=== PATIENT | female | born 1950 | race Caucasian/White ===

== ENCOUNTER 2019-09-29 01:15 | Inpatient (IN) | payer OTHER ==
[~2019-09-29] VITALS: Ht 165.1 cm; Wt 90.7 kg
[2019-09-29 01:22] VITALS: Ht 165.1 cm; Wt 90.7 kg
--- NOTE | 2019-09-29 01:34 | NUR ---
PT BIB [facility] FROM [facility], PT ASSISTED TO [facility]. PT STATES 6/10 BURNING TYPE CHEST PAIN RADIATING TO LT SIDE OF CHEST WITH PALPATIONS. PT STATED 'I HAD ACID REFLUX AND IT FELT LIKE MY HEART WAS RACING', STARTING THIS AM. PT ALSO NOTED WITH INCREASED BELCHING. PT DENIES ANY V/D/C, RESP ILLNESS, FEVER OR URINARY PROBLEMS AT THIS TIME. PT ON HOLD FOR HARM TO SELF. SITTER AT BEDSIDE.
[2019-09-29 01:57] LABS: BASOPHIL % 0.7 % (0-2); PLATELET COUNT 241 x10^3mcL (130-400); RED CELL DISTRIBUTION WIDTH 13.9 % (11.5-14.5)
[2019-09-29] MEDS ORDERED: PAXIL10 MG (02:36)
[2019-09-29] MEDS ORDERED: LAMICTAL25 M2 (02:36)
[2019-09-29] MEDS ORDERED: LASIX40 MG (02:37)
[2019-09-29] MEDS ORDERED: LOPRESSOR50 M1 (02:37)
[2019-09-29] MEDS ORDERED: LOSARTAN POTASS50 M1 (02:37)
[2019-09-29] MEDS ORDERED: ADALAT CC30 MG (02:37)
[2019-09-29] MEDS ORDERED: COZAAR50 M1 PO (02:38)
--- NOTE | 2019-09-29 02:44 | NUR ---
PT RESTNG IN POSITION OF COMFORT WITH SITTER FROM [facility] AT BEDSIDE. PT DENIES ANY PAIN AT THIS TIME. PT RESPS ARE E/U. PT IS A/O X4. PT HAS CALL LIGHT WITHIN REACH, PT IS IN CLEAR VIEW OF NURSES STATION. NO ACD
[2019-09-29 02:47] LABS: ALBUMIN 3.4 g/dL (3.4-5.0); BILIRUBIN TOTAL 0.3 mg/dL (0.20-1.00); CALCIUM 8.8 mg/dL (8.5-10.1); CARBON DIOXIDE 29.9 mmol/L (21-32); CREATININE SERUM 1.2 mg/dL (0.6-1.0); TOTAL PROTEIN, SERUM 7.4 g/dL (6.4-8.2)
[2019-09-29 02:53] LABS: POTASSIUM SERUM 3.3 mmol/L (3.5-5.1)
--- NOTE | 2019-09-29 03:30 | NUR ---
GAVE PT REPORT TO RN UPSTAIRS ON TELE FLOOR. PT IS ADMITTED TO TELE FLOOR FOR CONTINUED CARE
--- NOTE | 2019-09-29 03:46 | NUR ---
PT ESCORTED BY MYSELF AND [facility]SCAR EMT UP TO TELE FLOOR. PT IS A/O X4. PT RESPS ARE E/U. PT TAKEN UPSTIARS VIA SADE HERNANDEZ. NO ACD NOTED
[2019-09-29 03:52] LABS: CHOLESTEROL/HDL RATIO 4.5; MAGNESIUM 1.9 mg/dL (1.8-2.4); PHOSPHOROUS 2.8 mg/dL (2.5-4.9)
[2019-09-29 03:55] LABS: T3 TOTAL 1.18 ng/mL
[2019-09-29 03:58] LABS: FREE T4 1.79 ng/dL (0.76-1.46); FREE THYROXINE INDEX 4.2 ug/dL (1.4-4.5); T4(THYROXINE) 11.9 ug/dL (4.7-13.3)
[2019-09-29 04:46] VITALS: BP 174/82
--- NOTE | 2019-09-29 07:40 | NUR ---
RECEIVED PT FROM SQL ENGINEER NURSE. PT LAYING IN BED. NO ACUTE DUSTRESS NOTED. DENIES CHEST PAIN/PRESSURE AT THIS TIME. BREATHING EVEN AND UNLABORED. LH INFUSING NS @ 70 ML/HR, NO SWELLING OR REDNESS. DRESSING CDI. WILL CONTINUE TO MONITOR. CALL LIGHT IN REACH. BED IN LOWEST POSITION.
[2019-09-29 08:31] VITALS: BP 165/73
[2019-09-29 08:45] LABS: BASOPHIL % 0.2 % (0-2); PLATELET COUNT 190 x10^3mcL (130-400)
[2019-09-29 08:51] LABS: RED CELL DISTRIBUTION WIDTH 14.8 % (11.5-14.5)
--- NOTE | 2019-09-29 08:57 | NUR ---
PT LAYING IN BED. NO ACUTE DISTRESS NOTED. DENIES ANY CHEST PAIN/PRESSURE AT THIS TIME. ADMIN AM MEDS. PT TOLERATED WELL. WILL CONTINUE TO MONITOR. CALL LIGHT IN REACH. BED IN LOWEST POSITION.
[2019-09-29 09:30] LABS: CALCIUM 8.5 mg/dL (8.5-10.1); CARBON DIOXIDE 27.7 mmol/L (21-32); CREATININE SERUM 1.2 mg/dL (0.6-1.0); PHOSPHOROUS 2.4 mg/dL (2.5-4.9); POTASSIUM SERUM 4.1 mmol/L (3.5-5.1)
--- NOTE | 2019-09-29 10:35 | NUR ---
PT SITTING IN BED. DR. FERNÁNDEZ AT BEDSIDE. DISCUSSED PLAN OF CARE WITH PT. ALL QUESTIONS AND CONCERNS ADDRESSED.
[2019-09-29 11:32] VITALS: BP 172/83
--- NOTE | 2019-09-29 12:35 | NUR ---
PT SITTING IN BED. NO ACUTE DISTRESS NOTED. ADMIN INSULIN PER EMAR FOR BS 243. COLLECTED URINE SAMPLE. WILL CONTINUE TO MONITOR. CALL LIGHT IN REACH. BED IN LOWEST POSITION.
--- NOTE | 2019-09-29 12:46 | NUR ---
DR. DAY AT BEDSIDE. ALL QUESTIONS AND CONCERNS ADDRESSED. MADE AWARE PT INSURANCE NOT CONTRACTED HERE AND PT IS STABLE ENOUGH FOR TRANSFER TO CONTRACTED FACILITY.
--- NOTE | 2019-09-29 13:56 | NUR ---
PT SITTING IN BED. NO ACUTE DISTRESS NOTED. ADMIN MED. TOLERATED WELL. WILL CONTINUE TO MONITOR. CALL LIGHT IN REACH. BED IN LOWEST POSITION.
--- NOTE | 2019-09-29 15:08 | NUR ---
SPOKE WITH SONYA AMMONIA REFRIGERATION TECHNICIAN REGARDING TRANSFER TO CONTRACTED FACILITY, PT IS ACCEPTED AT [facility] WITH AN ACCEPTING PHYSICIAN, AWAITING A BED.
--- NOTE | 2019-09-29 16:20 | NUR ---
REPORT CALLED TO GERARD MAZA AT [facility]. ALL QUESTIONS AND CONCERNS ADDRESSED.
--- NOTE | 2019-09-29 16:36 | NUR ---
PT TRANSFERRED TO [facility]IA [facility]. REPORT GIVEN TO TRANSPORT STAFF. ALL QUESTIONS AND CONCERNS ADDRESSED. TELE #[id number] RETURNED TO MANAGER OUTPATIENT.
== END 2019-09-29 16:58 | disposition short-term general hospital (02) | DRG 304 ==
LOC: ED 01:15 → DU 03:01
PROVIDERS: Emergency Medicine; ADMIT Student in an Organized Health Care Education/Training Program
DX: I16.0 Hypertensive urgency (principal); N17.0 Acute kidney failure with tubular necrosis; I12.9 Hypertensive chronic kidney disease with stage 1 through stage 4 chronic kidney disease, or unspecified chronic kidney disease; N18.9 Chronic kidney disease, unspecified; E11.22 Type 2 diabetes mellitus with diabetic chronic kidney disease; E11.65 Type 2 diabetes mellitus with hyperglycemia; E87.6 Hypokalemia; E03.9 Hypothyroidism, unspecified; F32.9 Major depressive disorder, single episode, unspecified; Z68.33 Body mass index [BMI] 33.0-33.9, adult; Z79.84 Long term (current) use of oral hypoglycemic drugs
CPT/HCPCS: 82962; 83880; 84439; C9113; G0378; J7030; Q0092